=== PATIENT | male | born 2000 | race Caucasian/White ===

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

== ENCOUNTER 2022-02-26 23:44 | Emergency (ER) | payer BC, MEDICAID, SELFPAY ==
[2022-02-26 23:54] VITALS: BP 136/88; PULSE 89; RESP 20; TEMP 36.6; O2SAT 98; BMI 20.9
--- NOTE | 2022-02-27 00:10 | W.ED.GENADLT ---
HPI - General Adult General: Chief complaint: General Medical Stated complaint: Health Eval Time Seen by Provider: 02/26/22 23:56 Source: patient Mode of arrival: ambulatory Limitations: no limitations History of Present Illness: 21-year-old male states over last 2 days has had cough sore throat he denies any fever had some mild body aches. He denies any sick contacts he has been afebrile he has had no vomiting no diarrhea he denies any worsening proving factors. Associated symptoms: Deny chest pain, headache(s), nausea, rash or vomiting Review of Systems Const: Denies: fever(s), chills, body aches or change in appetite Eyes: Denies: blurry vision or eye discomfort ENMT: Reports: throat pain Card: Denies: chest pain Resp: Reports: non-productive cough GI: Denies: abdominal pain, nausea, vomiting or diarrhea : Denies: dysuria Musc: Denies: neck pain or back pain Skin/Breast: Denies: rash Neuro: Denies: headache(s) Psych: Denies: depression Tod/Lymph: Denies: easy bruising All/Imm: Denies: urticaria PFSH ED PFSH: Medical History (Updated 02/27/22 @ 00:17 by Raphael Plummer MD) Major depressive disorder, recurrent Family History Brother Seizures Grandfather Seizures Social History Smoking and tobacco status: never smoked Second hand smoke exposure: No Smoking risk assessment/counseling performed?: No Alcohol intake: never Desire information about alcohol rehabilitation?: No Counseling given: No Reason alcohol counseling not done: not indicated Desire information about substance/drug rehabilitation?: No Counseling given: No Reason substance/drug use counseling not done: not indicated Adopted: No Highest education level completed: 10th Grade Current occupational exposures/hazards: No Pets and animals: No Sexually active: Yes How many partners: 6 Are you practicing safe sex: No Current gender identity: Male Marilu/Congregational: None Special marilu needs: No Agree to transfusion: Yes Financial difficulty paying for basics: Not Very Hard Physical Exam Const: COMMON NORMALS: no acute distress, patient oriented x3 and healthy appearing HENMT: COMMON NORMALS: normocephalic and atraumatic HEAD & SCALP: normocephalic and atraumatic MOUTH: Normal oral and palatal mucosa present THROAT: posterior oropharynx normal Eye: COMMON NORMALS: Equal, round and reactive pupils present and EOMs intact bilaterally PUPIL: Yes Equal, round and reactive pupils present Neck/C-Spine: COMMON NORMALS: full ROM and supple Chest: COMMONS NORMALS: normal inspection of the chest and normal palpation of entire chest wall Resp: COMMON NORMALS: normal respiratory effort, No retractions, No use of accessory muscles and clear to auscultation bilaterally AUSCULTATION: clear to auscultation bilaterally Cardio: COMMON NORMALS: regular rate, regular rhythm and No murmurs present (Cardio) RATE: regular rate RHYTHM: regular rhythm GI: COMMON NORMALS: Normal to inspection, nondistended, normoactive bowel sounds present, Soft to palpation, non-tender and no masses PALPATION: Yes Soft to palpation Extremity: COMMON NORMALS: normal to inspection and full ROM Neuro: COMMON NORMALS: patient oriented x3, moves all extremities and no focal motor deficits Psych: COMMON NORMALS: mental status grossly normal, Normal thought process present and cooperative THOUGHT PROCESS: Normal thought process present Skin: COMMON NORMALS: no rashes or lesions noted and no wounds GENERAL SKIN EXAM: no rashes or lesions noted Course Vital Signs: Vital signs: Vital Signs Temperature 98.2 F 02/27/22 00:12 Pulse Rate 88 02/27/22 00:12 Respiratory Rate 16 02/27/22 00:12 Blood Pressure 123/76 02/27/22 00:12 Pulse Oximetry 97 02/27/22 00:12 Oxygen Delivery Co thod 02/27/22 00:[address] [facility] - General Adult Medical Decision Making Patient presents here with cough sore throat consistent with a viral URI his COVID test is pending he is to call for results strep is negative he is to follow-up PCP and return if worsening he understands agrees plan. Lab Data Laboratory Results Group A Strep Rapid Negative (Negative) 02/27/22 00:06 Discharge Plan Discharge Patient Disposition: Home Clinical Impression: Acute sore throat Condition: Stable Prescriptions: No Action Naprosyn 500 mg tablet 500 mg PO BID PRN (Reason: pain) Qty: 20 0RF Discharge Orders: Discharge ED (Routine); Ordered 02/27/22 Ordered By: Raphael Plummer Discharge Diet: Advance as tolerated Discharge Activity: Resume usual activity Patient Instructions: Strep Throat (ED) Coding Level of Care Code ED Medical Delivery Technician for Valentina Fwyecenia Exam Comprehensive
[2022-02-27 00:12] VITALS: BP 123/76; PULSE 88; RESP 16; TEMP 36.8; O2SAT 97
[2022-02-27 00:31] LABS: Rapid Strep A Test Negative (Negative)
[2022-02-27 02:06] LABS: Adenovirus Not Detected (NOT DETECT); Chlamydia Pneumoniae Not Detected (NOT DETECT); Coronavirus 229E,HKU1,NL63,OC4 Not Detected (NOT DETECT); Human Metapneumovirus Not Detected (NOT DETECT); Human Rhinovirus/Enterovirus Not Detected (NOT DETECT); Influenza A Not Detected (NOT DETECT); Influenza A H1 Not Detected (NOT DETECT); Influenza A H1-2009 Not Detected (NOT DETECT); Influenza A H3 Not Detected (NOT DETECT); Influenza B Not Detected (NOT DETECT); Mycoplasma Pneumoniae Not Detected (NOT DETECT); Parainfluenza Virus Type 1 Not Detected (NOT DETECT); Parainfluenza Virus Type 2 Not Detected (NOT DETECT); Parainfluenza Virus Type 3 Not Detected (NOT DETECT); Parainfluenza Virus Type 4 Not Detected (NOT DETECT); Respiratory Syncytial Virus A Not Detected (NOT DETECT); Respiratory Syncytial Virus B Not Detected (NOT DETECT); SARS-COV-2 Not Detected (NOT DETECT)
== END 2022-02-27 00:39 | disposition home or self-care (01) ==
PROVIDERS: Emergency Provider Emergency Medicine
DX: J02.9 Acute pharyngitis, unspecified (principal); Z20.822 Contact with and (suspected) exposure to COVID-19
CPT/HCPCS: 87081; 87635; 87880; 99283